=== PATIENT | male | born 1995 | race Caucasian/White ===

== ENCOUNTER 2017-05-23 10:12 | Emergency (ER) | payer BC ==
[~2017-05-23] VITALS: Ht 182.9 cm; Wt 86.2 kg
[2017-05-23 12:02] VITALS: BP 132/89
== END 2017-05-23 12:02 | disposition home or self-care (01) ==
LOC: ED 10:12
DX: S89.91XA Unspecified injury of right lower leg, initial encounter (principal); X50.9XXA Other and unspecified overexertion or strenuous movements or postures, initial encounter; Y93.72 Activity, wrestling; Y99.8 Other external cause status; Y92.89 Other specified places as the place of occurrence of the external cause
CPT/HCPCS: Q0092